=== PATIENT | male | born 1985 | race Hispanic/Latino ===

== ENCOUNTER 2016-10-15 21:21 | Emergency (ER) | payer BC ==
[2016-10-15 22:03] VITALS: BP 143/70; PULSE 61; RESP 16; TEMP 98.1; O2SAT 100
[2016-10-15] MEDS ORDERED: TDAP Vaccine 0.5 mL Syr IM ONE (22:29)
[2016-10-15] MEDS ORDERED: Silver Sulfadiazine 1% CREAM (50 gm) TOP STA (22:30)
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
[2016-10-15] MEDS ORDERED: Silver Sulfadiazine 1% CREAM (50 gm) ONE (23:01)
== END 2016-10-15 23:21 | disposition home or self-care (01) ==
LOC: H.ER 21:21
DX: T30.0 Burn of unspecified body region, unspecified degree (principal)